=== PATIENT | female | born 1995 | race Hispanic/Latino ===

== ENCOUNTER 2024-06-29 10:31 | Outpatient (CLI) | payer OTHER, SELFPAY ==
--- NOTE | ~2024-06-29 | US_ITS ---
Limited Abdominal Sonogram: Real-time sonographic imaging of the right upper quadrant was performed. Clinical History: Abnormal LFTs Findings: The liver appears echogenic, with no evidence of mass lesion or bile duct dilatation. Main portal vein demonstrates normal direction of flow. The gallbladder is well distended, and appears no rmal with no evidence of gallstone or wall thickening. The common bile duct measures 4 mm. The visua lized pancreas, aorta, and IVC are unremarkable. Impression: Diffuse fatty infiltration of the liver. Reviewed, dictated and finalized at location M. Impression: Diffuse fatty infiltration of the liver.
[2024-06-29 12:06] LABS: Alanine Aminotransferase 77 U/L (6-35); Albumin Level 4.5 g/dL (3.5-5.1); Alkaline Phosphatase 61 U/L (38-126); Aspartate Amino Transferase 71 U/L (14-36); Bilirubin,Total 0.5 mg/dL (0.2-1.3)
== END 2024-06-29 10:32 | disposition home or self-care (01) ==
LOC: ANHIMG 10:34
PROVIDERS: PCP Physician Assistant; Visit Provider Nurse Practitioner Family
DX: R74.01 Elevation of levels of liver transaminase levels (principal); K76.0 Fatty (change of) liver, not elsewhere classified
CPT/HCPCS: 36415; 76705; 80076

== ENCOUNTER 2024-06-30 12:48 | Outpatient (CLI) | payer OTHER, SELFPAY ==
[2024-07-02 05:38] LABS: GGT 39 U/L (3-40)
[2024-07-03 15:27] LABS: Alpha-1-Antitrypsin, QN 141 mg/dL (83-199); Ceruloplasmin 28 mg/dL (14-48)
[2024-07-05 21:38] LABS: Calprotectin, Stool 152 mcg/g
[2024-07-06 14:05] LABS: Actin Antibody (IgG) <20 U (<20)
[2024-07-08 00:13] LABS: Pancreatic Elastase, Stool 78 mcg/g
[2024-07-11 01:03] LABS: ALT 64 U/L (6-29); Alpha-2-Macroglobulin 222 mg/dL (106-279); Apolipoprotein A1 117 mg/dL (101-198); Fibrosis Score 0.19; Fibrosis Stage F0; GGT 41 U/L (3-40); Haptoglobin 115 mg/dL (43-212); Necroinflammat Act Grade A1; Reference ID 5062210; Total Bilirubin 0.5 mg/dL (0.2-1.2)
[2024-07-11 07:58] LABS: Mitochondrial (M2) Ab (IgG) <20.0 U
== END 2024-06-30 12:49 | disposition home or self-care (01) ==
LOC: ANHLAB 12:50
PROVIDERS: PCP Physician Assistant; Visit Provider Nurse Practitioner Family
DX: K76.0 Fatty (change of) liver, not elsewhere classified (principal); R74.01 Elevation of levels of liver transaminase levels
CPT/HCPCS: 36415; 81596; 82103; 82390; 82653; 82977; 83520; 83993; 86038; 86039; 86364; 87045; 87427; 87449

== ENCOUNTER 2024-08-14 01:07 | Day surgery (SDC) | payer OTHER, SELFPAY ==
[2024-07-17 15:33] VITALS: BMI 41.2
[2024-08-14 10:25] VITALS: BP 144/83; PULSE 76; RESP 17; TEMP 36; O2SAT 100; BMI 41.0
[2024-08-14] MEDS: LACTATED RINGERS 1,000 ML 150 ML IV CONT (10:35)
[2024-08-14 10:41] LABS: BEDSIDEPREGUCG Negative (Negative)
--- NOTE | 2024-08-14 10:52 | WPDANESEPPF ---
Anes - Initial Pre Proc Eval Procedure: Operation Date: 08/14/24 11:30 Proposed Procedures p Colonoscopy - Sean Aguilar MD Date/Time: 08/14/24 10:52 Surgeon: Sean Aguilar MD Pre Op Diagnosis: Noninfective gastroenteritis/colitis, unspecified Patient Data Age: 29 Gender: F Height: 1.63 m Weight: 108.5 kg Last Vital Signs Temp 96.8 F L 08/14/24 10:25 Pulse 76 08/14/24 10:25 Resp 17 08/14/24 10:25 BP 144/83 H 08/14/24 10:25 Pulse Ox 100 08/14/24 10:25 O2 Del Method Room Air 08/14/24 10:25 Allergies Allergy/AdvReac Type Severity Reaction Status Date / Time No Known Allergies Allergy Verified 08/14/24 10:21 Home Medications Medication Instructions Recorded Confirmed Type dicyclomine 10 mg capsule 10 mg PO ACHS #120 caps 06/08/24 08/14/24 Rx ergocalciferol (vitamin D2) 1,250 1,250 mcg PO WEEKLY 07/17/24 08/14/24 History mcg (50,000 unit) capsule trazodone 50 mg tablet 50 mg PO 3XW 07/17/24 08/14/24 History Laboratory Tests 08/14/24 10:25 POC Urine HCG, Qual Negative (Negative) Patient hx anesthesia problems: none Family hx anesthesia problems: none Results Review: All pre-operative results and documents have been reviewed as part of the pre-operative evaluation. [facility] Past Medical History Medical History (Updated 06/30/24 @ 12:12 by Marilu Lyles APRN) Anxiety Depression History of hypertension Family History Family History Father Depression Sibling Hypertension Diabetes mellitus Depression Social History Social History Smoking status: Never smoker Alcohol intake: never Substance use: never Substance use type: does not use Living arrangements: with family Spiritual care concerns: No Anes - Eval Final PreProcedure Day of Procedure 08/14/24 10:52 Patient weight: morbidly obese Heart: regular rate and rhythm Lungs: clear to auscultation Airway: Mallampati scale class II Neurological: alert and oriented Last oral intake: >/= 8 hours ASA classification: III Emergent: no Anesthetic plan: proceed Anesthesia type and monitoring: general GIVS and standard monitoring Results Review: All pre-operative results and documents have been reviewed as part of the pre-operative evaluation. Informed Consent: The patient's anesthetic plan and its attendant risks and benefits were discussed with the patient/family/POA. Questions were solicited and answers provided to the satisfaction of the patient/family/POA.
--- NOTE | 2024-08-14 11:21 | PM.HPGS ---
History of Present Illness History of Present Illness Consent: Risks, benefits, and alternatives have been discussed and questions answered. Patient agrees to proceed with procedure. Chief complaint: Noninfective gastroenteritis/colitis, unspecified Narrative: Clara Grayson is a 29 year old female here for first colonoscopy, h/o loose stools, using bentyl prn Review of Systems Review of Systems: All systems reviewed & are unremarkable except as noted in HPI and below PMFSH Past Medical History Medical History (Updated 06/30/24 @ 12:12 by Marilu Lyles APRN) Anxiety Depression History of hypertension Family History Family History Father Depression Sibling Hypertension Diabetes mellitus Depression Social History Social History Smoking status: Never smoker Alcohol intake: never Substance use: never Substance use type: does not use Living arrangements: with family Spiritual care concerns: No Meds Home Medications and Allergies Home Medications Medication Instructions Recorded Confirmed Type dicyclomine 10 mg capsule 10 mg PO ACHS #120 caps 06/08/24 08/14/24 Rx ergocalciferol (vitamin D2) 1,250 1,250 mcg PO WEEKLY 07/17/24 08/14/24 History mcg (50,000 unit) capsule trazodone 50 mg tablet 50 mg PO 3XW 07/17/24 08/14/24 History Allergies Allergy/AdvReac Type Severity Reaction Status Date / Time No Known Allergies Allergy Verified 08/14/24 10:21 Vital Signs Vital Signs - 24 hr 08/14/24 10:25 Temperature 96.8 F L Pulse Rate 76 Respiratory Rate 17 Blood Pressure 144/83 H Pulse Oximetry 100 Oxygen Delivery Room Air Exam Const: General: comfortable and no acute distress HENMT: Face/Nose/Sinus: Normal nares present Eyes: General: appearance normal, both eyes and all related structures Neck: Neck: no JVD Resp: Auscultation: clear to auscultation bilaterally Cardio: Rate: regular rate Rhythm: regular rhythm GI: Inspection: non-distended GI Palp: Yes Soft to palpation Skin: General skin exam: normal color Neuro: General: gait normal Speech: normal speech Extrem: General: normal to inspection Psych: Mental Status: mental status grossly normal Assessment and Plan Assessment and plan (1) Chronic diarrhea: Code(s): K52.9 - Noninfective gastroenteritis and colitis, unspecified Status: Acute Assessment and Plan: colonoscopy with random colon bx
[2024-08-14 11:36] VITALS: BP 123/78; PULSE 79; RESP 22; O2SAT 100
[2024-08-14 11:46] VITALS: BP 124/83; PULSE 71; RESP 25; O2SAT 100
[2024-08-14 11:56] VITALS: BP 125/82; PULSE 59; RESP 14; O2SAT 100
== END 2024-08-14 11:59 | disposition home or self-care (01) ==
PROVIDERS: Anesthesiology; PCP Physician Assistant; Referring Provider Nurse Practitioner Family; Visit Provider Internal Medicine Gastroenterology
PROC: 0DJD8ZZ Inspection of Lower Intestinal Tract, Via Natural or Artificial Opening Endoscopic (ICD-10-PCS; CPT 45378; principal; 2024-08-14 11:30)
DX: K52.9 Noninfective gastroenteritis and colitis, unspecified (principal); I10 Essential (primary) hypertension; F41.9 Anxiety disorder, unspecified; F32.A Depression, unspecified; E66.01 Morbid (severe) obesity due to excess calories; Z68.41 Body mass index [BMI] 40.0-44.9, adult
CPT/HCPCS: 45380; 88305; J2704; J7120